=== PATIENT | male | born 1945 | race Caucasian/White ===

== ENCOUNTER → 2017-07-01 | Outpatient (CLI) | payer MEDICARE, OTHER ==
[~2017-07-01] MED LIST: ASPI-496 PO; ATOR40TA78 PO; CALC-451 PO; CHOL2000 PO; CYAN100072 PO; LYSI500T3 PO; MULT-249 PO; OMEG1CAP6 PO; PANT40TA5 PO; UBID100C24 PO
== END ==
LOC: STAR 10:07
PROVIDERS: ATTEND Colon & Rectal Surgery
DX: Z01.818 Encounter for other preprocedural examination (principal); R94.31 Abnormal electrocardiogram [ECG] [EKG]
CPT/HCPCS: 93005

== ENCOUNTER 2017-07-07 06:49 | Day surgery (SDC) | payer MEDICARE, OTHER ==
[~2017-07-07] VITALS: Ht 172.7 cm; Wt 80.3 kg
[~2017-07-07 06:49] MED LIST changes: +BUPIVACAINE/PF 0.5% ONE
[2017-07-07] MEDS ORDERED: LACTATED RINGERS 1,000 ML IV SCH (07:16)
[2017-07-07 07:22] VITALS: BP 154/93
[2017-07-07] MEDS ORDERED: LIDOCAINE 1%, 2ML ONE (07:26)
[2017-07-07] MEDS ORDERED: CEFAZOLIN 1,000 MG ONE (07:49)
[2017-07-07] MEDS ORDERED: FENTANYL PF 100 MCG/2ML ONE (08:06)
[2017-07-07] MEDS ORDERED: PROPOFOL 10 MG/ML, 20ML ONE (08:09)
[2017-07-07] MEDS ORDERED: DEXAMETHASONE 4 MG/ML, 1ML ONE ×2 (08:09)
[2017-07-07] MEDS ORDERED: LIDOCAINE-MPF 2% ,5ML ONE (08:09)
[2017-07-07] MEDS ORDERED: ONDANSETRON 2MG/ML, 2ML ONE (08:09)
[2017-07-07] MEDS ORDERED: BUPIVACAINE/PF-EPI 0.5% 1:200K INFIL ONE (08:10)
[2017-07-07] MEDS ORDERED: EPHEDRINE 50 MG/ML, 1ML ONE (08:23)
[2017-07-07] MEDS ORDERED: morphine SULFATE 10 MG/ML, 1ML IV PRN (08:30)
[2017-07-07] MEDS ORDERED: MEPERIDINE/PF 25MG/0.5ML IVPush PRN (08:30)
[2017-07-07] MEDS ORDERED: ONDANSETRON 2MG/ML, 2ML IVPush PRN (08:30)
[2017-07-07] MEDS ORDERED: HYDROcodone/APAP 7.5-325MG/15ML UDC PO PRN (08:30)
[2017-07-07] MEDS ORDERED: ACETAMINOPHEN 325 MG TABLET PO PRN (08:30)
[2017-07-07] MEDS ORDERED: FENTANYL PF 100 MCG/2ML IV PRN (08:30)
[2017-07-07] MEDS ORDERED: KETOROLAC 30 MG/1 ML ONE (09:27)
[2017-07-07] MEDS ORDERED: ACETAMINOPHEN 325 MG TABLET ONE (09:28)
[2017-07-07] MEDS ORDERED: KETOROLAC 30 MG/1 ML IVPush ONE (09:30)
[2017-07-07] MEDS ORDERED: OXYcodone 5 MG/5 ML ORAL.SOL UDC PO PRN (09:30)
== END 2017-07-07 11:30 | disposition home or self-care (01) ==
LOC: OUT 06:49
PROVIDERS: ATTEND Colon & Rectal Surgery
DX: K40.91 Unilateral inguinal hernia, without obstruction or gangrene, recurrent (principal); E78.00 Pure hypercholesterolemia, unspecified; Z98.890 Other specified postprocedural states; Z79.82 Long term (current) use of aspirin; Z79.899 Other long term (current) drug therapy; Z80.0 Family history of malignant neoplasm of digestive organs; Z83.3 Family history of diabetes mellitus; K21.9 Gastro-esophageal reflux disease without esophagitis
CPT/HCPCS: 49520; C1781; J0690; J1100; J1885; J2405; J2704; J3010; J3490; J7120

== ENCOUNTER 2020-05-16 03:20 | Emergency (ER) | payer MEDICARE, OTHER ==
[~2020-05-16] VITALS: Ht 172.7 cm; Wt 79.2 kg
[~2020-05-16 03:20] MED LIST changes: -BUPIVACAINE/PF 0.5% ONE; -PANT40TA5 PO; +PANT40TA6 PO
[2020-05-16 03:22] VITALS: BP 168/82
[2020-05-16] MEDS ORDERED: ASPIRIN 81 MG TABLET CHEW ONE (03:44)
[2020-05-16] MEDS ORDERED: MORPHINE SULFATE 4 MG/ML, 1ML IVPush PRN (04:00)
[2020-05-16] MEDS ORDERED: SODIUM CHLORIDE FLUSH 10ML SYR IVF ONE (04:00)
[2020-05-16] MEDS ORDERED: ASPIRIN 81 MG TABLET CHEW PO ONE (04:00)
[2020-05-16 04:13] LABS: BASOPHILS % (AUTO) 1 % (0-1); EOSINOPHILS % (AUTO) 2 % (1-7); LYMPHOCYTES % (AUTO) 22 % (22-44); MEAN CORPUSCULAR HEMOGLOBIN 32.4 pg (27.5-34.5); MEAN CORPUSCULAR HGB CONC 34.2 g/dL (33.2-36.2); MEAN PLATELET VOLUME 8.3 fL (7.4-10.4); MONOCYTES % (AUTO) 9 % (2-9); NEUTROPHILS % (AUTO) 67 % (42-75); PLATELET COUNT 300 x10^3/uL (130-400); RED CELL DISTRIBUTION WIDTH 12.6 % (9.4-14.8)
[2020-05-16 04:17] LABS: MD NO
[2020-05-16 04:24] LABS: ALBUMIN 3.1 g/dL (3.4-5.0); ANION GAP 4 mmol/L (5-15); CALCIUM 8.7 mg/dL (8.5-10.1); CHLORIDE 108 mmol/L (98-107)
[2020-05-16 04:32] LABS: ALANINE AMINOTRANSFERASE 35 U/L (12-78); ALKALINE PHOSPHATASE 69 U/L (45-117); BILIRUBIN,TOTAL 0.6 mg/dL (0.2-1.0); CREATININE 1.13 mg/dL (0.7-1.3); TOTAL PROTEIN 6.6 g/dL (6.4-8.2); TROPONIN I < 0.015 ng/mL (0.000-0.045)
--- NOTE | 2020-05-16 05:09 | NUR ---
Patient/Caregiver given discharge instructions and they have confirmed that they understand the instructions. Patient ambulatory with steady gait.
== END 2020-05-16 05:14 | disposition home or self-care (01) ==
LOC: ED 05:00
DX: R07.2 Precordial pain (principal); I44.4 Left anterior fascicular block; R07.89 Other chest pain
CPT/HCPCS: 36415; 71045; 80053; 83880; 84484; 85025; 93005; 99285